=== PATIENT | male | born 1995 | race Caucasian/White ===

== ENCOUNTER 2021-06-15 17:49 | Emergency (ER) | payer OTHER ==
[2021-06-15 20:49] LABS: BASOPHIL 0.3 % (0-2); EOSINOPHIL 0 % (0-5); HCT 44.8 % (42.0-52.0); HGB 16.2 g/dl (13.2-18.0); LYMPHOCYTE 5.5 % (15-48); MCH 35.1 pg (25.0-31.0); MCHC 36.2 g/dL (32.0-36.0); MONOCYTE 8.7 % (0-12); MPV 9.4 fL (6.0-9.5); NEUTROPHIL 85.1 % (41-80); NRBC 0; PLT 220 K/uL (150-400); RBC 4.62 M/uL (4.70-6.00); RDW 11.8 % (11.5-14.0); WBC 14.5 K/uL (4.0-10.5)
[2021-06-15 21:06] LABS: ALBUMIN 4.4 g/dL (3.4-5.0); BILIRUBIN - TOTAL 0.8 mg/dL (0.2-1.0); BUN/CREAT RATIO (CALC) 12.3 RATIO; CREATININE 0.81 mg/dL (0.67-1.17); GLOBULIN (CALCULATION) 3.2 g/dL; POTASSIUM 3.6 mmol/L (3.5-5.1); TOTAL PROTEIN 7.6 g/dL (6.4-8.2)
[2021-06-16] MEDS ORDERED: CEPHALEXIN500 M1 PO (03:10)
[2021-06-16] MEDS ORDERED: PERCOCET 5-3251 EACH PO (03:10)
[2021-06-16] MEDS ORDERED: CYCLOBENZAPRINE10 MG PO (03:10)
[2021-06-16] MEDS ORDERED: IBUPROFEN800 MG PO (03:10)
== END 2021-06-16 03:48 | disposition home or self-care (01) ==
LOC: FER 17:49
PROVIDERS: Emergency Medicine Emergency Medical Services
DX: S51.811A Laceration without foreign body of right forearm, initial encounter (principal); S30.811A Abrasion of abdominal wall, initial encounter; M25.562 Pain in left knee; M25.552 Pain in left hip; R07.9 Chest pain, unspecified; F17.200 Nicotine dependence, unspecified, uncomplicated; V86.69XA Passenger of other special all-terrain or other off-road motor vehicle injured in nontraffic accident, initial encounter
CPT/HCPCS: 36415; 71260; 73090; 73552; 73564; 80053; 83605; 83690; 85025; 96374; 96375; 96376; 99152; J1170; J1885; J2405; J3010; J7030; Q9967

== ENCOUNTER 2021-06-19 16:16 | Inpatient (IN) | payer OTHER ==
[~2021-06-19] VITALS: Ht 180.3 cm; Wt 72.1 kg
[~2021-06-19 16:16] MED LIST: CEPHALEXIN500 M1 PO; CYCLOBENZAPRINE10 MG PO; IBUPROFEN800 MG PO; PERCOCET 5-3251 EACH PO
[2021-06-19 17:27] LABS: BASOPHIL 0.3 % (0-2); EOSINOPHIL 0.7 % (0-5); HCT 36.2 % (42.0-52.0); HGB 12.4 g/dl (13.2-18.0); LYMPHOCYTE 15.7 % (15-48); MCH 34.7 pg (25.0-31.0); MCHC 34.3 g/dL (32.0-36.0); MONOCYTE 9.4 % (0-12); MPV 9.6 fL (6.0-9.5); NEUTROPHIL 73.7 % (41-80); NRBC 0; PLT 180 K/uL (150-400); RBC 3.57 M/uL (4.70-6.00); RDW 11.9 % (11.5-14.0); WBC 5.7 K/uL (4.0-10.5)
[2021-06-19 17:33] LABS: MCV 101.4 fL (78.0-100.0)
[2021-06-19 17:41] LABS: ALBUMIN 3.2 g/dL (3.4-5.0); BILIRUBIN - TOTAL 0.4 mg/dL (0.2-1.0); BUN/CREAT RATIO (CALC) 11.4 RATIO; CREATININE 0.79 mg/dL (0.67-1.17); GLOBULIN (CALCULATION) 3.6 g/dL; POTASSIUM 3.9 mmol/L (3.5-5.1); TOTAL PROTEIN 6.8 g/dL (6.4-8.2)
[2021-06-20 06:03] LABS: BASOPHIL 0.5 % (0-2); EOSINOPHIL 1.4 % (0-5); HCT 34.8 % (42.0-52.0); HGB 11.9 g/dl (13.2-18.0); LYMPHOCYTE 24.9 % (15-48); MCH 34.9 pg (25.0-31.0); MCHC 34.2 g/dL (32.0-36.0); MCV 102.1 fL (78.0-100.0); MONOCYTE 12.2 % (0-12); MPV 9.7 fL (6.0-9.5); NEUTROPHIL 60.8 % (41-80); NRBC 0; PLT 156 K/uL (150-400); RBC 3.41 M/uL (4.70-6.00); WBC 4.2 K/uL (4.0-10.5)
[2021-06-20 06:24] LABS: BUN/CREAT RATIO (CALC) 11.6 RATIO; CREATININE 0.69 mg/dL (0.67-1.17); POTASSIUM 3.9 mmol/L (3.5-5.1)
--- NOTE | 2021-06-20 14:41 | NUR ---
06/20/21 Mr. Edwards will go home on oral antibiotics opposed to IV antibiotics.
[2021-06-20] MEDS ORDERED: BACITRACIN1 EACH TOP (18:42)
[2021-06-20] MEDS ORDERED: DOXYCYCLINE MO100 MG PO (18:42)
[2021-06-20] MEDS ORDERED: PERCOCET 5-3251 EACH PO (18:42)
== END 2021-06-20 18:54 | disposition home or self-care (01) | DRG 603 ==
LOC: FER 16:16 → FMS 18:47 → FER 18:47 → FMS 06-20 18:54
PROVIDERS: Emergency Medicine; Nurse Practitioner; ADMIT Internal Medicine
DX: L03.113 Cellulitis of right upper limb (principal); Z94.81 Bone marrow transplant status; T81.33XA Disruption of traumatic injury wound repair, initial encounter; S86.912A Strain of unspecified muscle(s) and tendon(s) at lower leg level, left leg, initial encounter; Z20.822 Contact with and (suspected) exposure to COVID-19; F17.200 Nicotine dependence, unspecified, uncomplicated; S51.811A Laceration without foreign body of right forearm, initial encounter; J45.909 Unspecified asthma, uncomplicated; Z85.71 Personal history of Hodgkin lymphoma; Z85.72 Personal history of non-Hodgkin lymphomas; Z90.89 Acquired absence of other organs; V86.99XA Unspecified occupant of other special all-terrain or other off-road motor vehicle injured in nontraffic accident, initial encounter
CPT/HCPCS: 36415; 80048; 80053; 85025; 86140; 87070; 87077; 87186; 87205; 99284; J3370; J7040; J7050; U0002